=== PATIENT | male | born 1945 | race Caucasian/White ===

== ENCOUNTER 2016-04-10 10:42 | Emergency (ER) | payer BC, OTHER ==
[~2016-04-10] VITALS: Ht 188 cm; Wt 101.0 kg
[~2016-04-10 10:42] MED LIST: CRESTOR10 MG PO
[2016-04-10 11:06] VITALS: BP 142/87
[2016-04-10 11:30] VITALS: BP 137/85
[2016-04-10 12:19] LABS: BASOPHIL COUNT 0.1 K/uL (0-0.1); EOSINOPHIL (%) 4.4 % (0-5); EOSINOPHIL COUNT 0.4 K/uL (0-0.3); HEMATOCRIT 48.5 % (38.0-50.0); IMMATURE GRANULOCYTE (%) 0.1 % (0.0-0.7); IMMATURE GRANULOCYTE COUNT 0.1 K/uL; LYMPHOCYTE COUNT 2.1 K/uL (1.0-2.8); MCH 30.2 PG (29.0-34.0); MCHC 36.3 G/DL (30.0-36.0); MCV 83.3 FL (86-99); MEAN PLAT.VOLUME 10.6 uM^3 (9.0-12.4); MONOCYTE (%) 8.6 % (3-12); MONOCYTE COUNT 0.7 K/uL (0-0.8); NEUTROPHIL (%) 61.5 % (45-76); NEUTROPHIL COUNT 5.2 K/uL (1.8-6.4); PLATELET COUNT 182 K/uL (156-360); RBC DIS.WIDTH-CV 14.9 % (11.8-14.6); RBC DIS.WIDTH-SD 45.2 % (39-53); RED BLOOD COUNT 5.82 M/uL (4.00-5.50); WHITE BLOOD COUNT 8.5 K/uL (4.1-10.2)
[2016-04-10 12:29] LABS: CHLORIDE 109 mEq/L (99-109); POTASSIUM 4.2 mEq/L (3.7-5.4); SODIUM 142 mEq/L (136-147)
[2016-04-10 12:30] LABS: GLUCOSE 145 mg/dL (70-99)
[2016-04-10 12:32] LABS: ANION GAP 7 MEQ/L (2-14)
[2016-04-10 12:34] LABS: GFR ESTIMATE (CALCULATED) > 59 mL/min/
[2016-04-10 12:35] LABS: UREA NITROGEN (BUN) 17 mg/dL (9-23)
[2016-04-10 12:39] LABS: TROP-I INTERPRETATION NEGATIVE; TROPONIN-I 0.04 ng/mL (0.0-0.30)
[2016-04-10 13:00] VITALS: BP 146/93
[2016-04-10] MEDS ORDERED: TOPROL XL25 MG PO (13:01)
[2016-04-10 13:30] VITALS: BP 146/95
[2016-04-10 13:42] VITALS: BP 146/95
== END 2016-04-10 13:45 | disposition home or self-care (01) ==
LOC: EME → EDBD 10:42 → EME 10:42
PROVIDERS: Emergency Medicine
DX: I47.1 Supraventricular tachycardia (principal); E78.5 Hyperlipidemia, unspecified
CPT/HCPCS: 71010; 80048; 84484; 85025; 93005; 99281; 99285; J0153